=== PATIENT | female | born 1960 | race Caucasian/White ===

== ENCOUNTER 2016-08-16 12:55 | Inpatient (IN) | payer BC ==
[~2016-08-16] VITALS: Ht 170.2 cm; Wt 89.4 kg
[~2016-08-16 12:55] MED LIST: ASCO10003 PO; ASPI81TA28 PO; CHOL1000 PO; CLTP PO; DYZ PO; LORA-741 PO; OMEP40CA PO; VITA400C15 PO
[2016-08-16] MEDS ORDERED: SODIUM CHLORIDE 0.9% 1000ML 1,000 ML IV STA ×3 (14:07→15:18)
[2016-08-16] MEDS ORDERED: ACETAMINOPHEN 500 MG TAB PO STA (14:12)
[2016-08-16 14:43] LABS: HEMATOCRIT 40.7 % (37-47); MEAN CELL VOLUME 95.1 fL (80-100); MEAN CORPUSCULAR HEMOGLOBIN 32.7 pg (25-34); MEAN CORPUSCULAR HGB CONC 34.4 g/dl (32-36); MEAN PLATELET VOLUME 10.5 fL (7.4-10.4); PLATELET COUNT 265 K/uL (130-400); RED BLOOD COUNT 4.28 M/uL (4.2-5.4); WHITE BLOOD COUNT 24.48 K/uL (4.8-10.8)
[2016-08-16 14:54] LABS: INR 1.1 (0.9-1.1); PARTIAL THROMBOPLASTIN RATIO 1.1; PROTHROMBIN TIME (PATIENT) 11.9 SECONDS (9.0-12.0)
--- NOTE | 2016-08-16 14:54 | DIAGNOSTIC IMAGING REPORT ---
CHEST ONE VIEW PORTABLE CLINICAL HISTORY: Weakness COMPARISON STUDY: 11/05/2015 FINDINGS: The heart is the upper limits of normal in size. There is mild interstitial thickening similar to the prior study. There is no overt failure. There is no lobar consolidation. There is no significant pleural fluid.[ IMPRESSION: Mild chronic interstitial thickening. No acute findings. Electronically signed by: Donald Salcido M.D. 08/16/2016 2:52 PM
[2016-08-16 15:13] LABS: ALT/SGPT 28 U/L (12-78); BLOOD UREA NITROGEN 15 mg/dl (7-18); BUN/CREATININE RATIO 16.3 (10-20); CALCIUM 8.2 mg/dl (8.5-10.1); CARBON DIOXIDE 23 mmol/L (21-32); CHLORIDE 100 mmol/L (98-107); CREATININE 0.89 mg/dl (0.60-1.20); GLUCOSE 137 mg/dl (70-99); MAGNESIUM 1.4 mg/dl (1.8-2.4); POTASSIUM 3.1 mmol/L (3.5-5.1); SODIUM 135 mmol/L (136-145)
[2016-08-16 15:22] LABS: ALKALINE PHOSPHATASE 73 U/L (45-117); AST/SGOT 27 U/L (15-37); CKMB/CK RATIO 0.6 (0-3.0)
[2016-08-16 15:33] LABS: BASO % 0.1 %; BASO ABS # 0.02 K/uL (0-0.2); COMPLETE YES; IG% 0.6 %; LYMPH ABS # 1.22 K/uL (1.2-3.4); MONO % 7.6 %; NEUT % 86.7 %; VACUOLIZATION 1+
[2016-08-16 16:08] LABS: URINE APPEARANCE CLOUDY (CLEAR); URINE COLOR DK YELLOW; URINE EPITHELIAL CELL AUTO >30 /lpf (0-5); URINE NITRITE NEG (NEG); URINE SPECIFIC GRAVITY 1.028 (1.000-1.030); UROBILINOGEN NEG (NEG)
[2016-08-16 16:09] LABS: MANUAL MICROSCOPIC REQUIRED? NO; REVIEW REQ? NO
[2016-08-16 16:10] LABS: URINE BILIRUBIN NEG (NEG)
[2016-08-16] MEDS ORDERED: METRONIDAZOLE 500MG / 100ML NSS IV STA (17:29)
[2016-08-16] MEDS ORDERED: POTASSIUM CHLORIDE 10 MEQ / 100ML WTR IV STA (17:30)
[2016-08-16] MEDS ORDERED: MAGNESIUM SULFATE 1GM / D5W 1 GM BAG IV STA (17:30)
--- NOTE | 2016-08-16 18:08 | History and Physical ---
History & Physical Date & Time of Service: Aug 16, 2016 at 18:08 . Chief Complaint: diarrhea, fever . Primary Care Physician: Hayder Hough M.D. . History of Present Illness Source: patient, clinic records, hospital records 56 YO female followed by Dr. Hough. History of hypertension and GERD. Prescribed amoxicillin / clavulanic acid for tooth abscess 1 week ago. Developed fever, malaise, diarrhea last night. No associated abdominal pain. Experienced some nausea, but no emesis. Passed about 8 loose stools during the night. No melena or hematochezia. She did not try any over the counter medications for her symptoms. . Past Medical/Surgical History Medical Problems: (1) GERD (gastroesophageal reflux disease) Status: Chronic (2) Hypertension Status: Chronic . Family History FATHER Diabetes mellitus Hypertension Glaucoma MOTHER Hypertension BROTHER Coronary artery disease BROTHER Coronary artery disease SISTER Stroke Social History Smoking Status: Never Smoker Alcohol Use: none Marital Status: single Housing status: lives with family Occupational Status: employed Immunizations History of Influenza Vaccine: Yes History of Tetanus Vaccine?: UTD History of Pneumococcal: No History of Hepatitis B Vaccine: Unknown Multi-Drug Resistant Organisms History of MDRO: No Allergies Coded Allergies: No Known Allergies (Unverified , 08/16/16) Home Medications Scheduled Ascorbic Acid (Vitamin C), 1,000 MG PO DAILY Aspirin (Aspirin Ec), 81 MG PO DAILY Calcium/Vitamin D (Caltrate 600 Plus *), 1 TAB PO DAILY Cholecalciferol (Vitamin D3), 1 TAB PO DAILY Hctz/Lisinopril (Lisinopril/Hctz 10/12.5 Mg), 1 TAB PO DAILY Omeprazole (Prilosec), 40 MG PO Q2D Tocopheryl Acet,Dl-Alpha (Vitamin E), 400 INTER.UNIT PO DAILY Venlafaxine Hcl (Venlafaxine Hcl Er), 150 MG PO DAILY Scheduled PRN Lorazepam (Ativan), 0.5 MG PO TID PRN for Anxiety/Agitation Review of Systems Constitutional: + chills, + fever, No weight loss Eyes: No diplopia, No worsening of vision ENT: + dental problems (dental abscess last week, symptoms resolved), No nasal symptoms, No sore throat Respiratory: No cough, No shortness of breath, No wheezing Cardiovascular: No chest pain, No edema Abdomen: + diarrhea, + nausea, No GI bleeding, No pain, No vomiting Musculoskeletal: No joint pain, No muscle pain Genitourinary - Female: No dysuria, No hematuria Neurologic: + problem reported (headache today) Endocrine: No excessive thirst, No excessive urination, No fatigue Hematologic / Lymphatic: No abnormal bleeding/bruising, No swollen lymph nodes Integumentary: No new/changing skin lesions, No rash Physical Exam Vital Signs Date Time Temp Pulse Resp B/P Pulse Ox O2 Delivery O2 Flow Rate FiO2 08/16/16 18:07 102 22 95/65 91 Room Air 08/16/16 16:30 37.9 100 22 109/69 92 Room Air 08/16/16 16:04 98 24 109/69 94 Room Air 08/16/16 15:47 100 24 104/66 93 Room Air 08/16/16 15:09 38.1 105 26 94/60 94 Room Air 08/16/16 14:27 115 08/16/16 14:11 93 Room Air 08/16/16 13:21 39.3 133 18 97/68 93 Room Air General Appearance: WD/WN, + moderate distress Head: normocephalic, atraumatic Eyes: normal inspection, PERRL, EOMI, sclerae normal, + pertinent finding ( conjunctivae normal) ENT: normal ENT inspection, hearing grossly normal, pharynx normal Neck: supple, no adenopathy, thyroid normal, no JVD, trachea midline Respiratory/Chest: lungs clear, no respiratory distress, no accessory muscle use Cardiovascular: regular rate, rhythm, no edema, no gallop, no JVD, no murmur Abdomen/GI: non tender, soft, no organomegaly, no pulsatile mass, + pertinent finding (quiet bowel sounds) Extremities/Musculoskelatal: normal inspection, no calf tenderness, no pedal edema Neurologic/Psych: chemical dependency nurse II-XII nml as tested (PERRL, EOMI, no facial palsy), no motor/sensory deficits (motor grossly intact), alert, normal mood/affect, oriented x 3 Skin: normal color, warm/dry, no rash Diagnostics Laboratory Results Results Past 24 Hours Test 08/16/16 14:00 08/16/16 14:20 08/16/16 14:27 08/16/16 15:40 Range/Units Influenza Type A Antigen Neg for Influ A NEG Influenza Type B Antigen Neg for Influ B NEG White Blood Count 24.48 4.8-10.8 K/uL Red Blood Count 4.28 4.2-5.4 M/uL Hemoglobin 14.0 12.0-16.0 g/dL Hematocrit 40.7 37-47 % Mean Corpuscular Volume 95.1 80-100 fL Mean Corpuscular Hemoglobin 32.7 25-34 pg Mean Corpuscular Hemoglobin Concent 34.4 32-36 g/dl Platelet Count 265 130-400 K/uL Mean Platelet Volume 10.5 7.4-10.4 fL Neutrophils (%) (Auto) 86.7 % Lymphocytes (%) (Auto) 5.0 % Monocytes (%) (Auto) 7.6 % Eosinophils (%) (Auto) 0.0 % Basophils (%) (Auto) 0.1 % Neutrophils # (Auto) 21.24 1.4-6.5 K/uL Lymphocytes # (Auto) 1.22 1.2-3.4 K/uL Monocytes # (Auto) 1.86 0.11-0.59 K/uL Eosinophils # (Auto) 0.00 0-0.5 K/uL Basophils # (Auto) 0.02 0-0.2 K/uL RDW Standard Deviation 46.4 36.4-46.3 fL RDW Coefficient of Variation 13.4 11.5-14.5 % Immature Granulocyte % (Auto) 0.6 % Immature Granulocyte # (Auto) 0.14 0.00-0.02 K/uL Toxic Vacuolation 1+ Prothrombin Time 11.9 9.0-12.0 SECONDS Prothromb Time International Ratio 1.1 0.9-1.1 Activated Partial Thromboplast Time 29.2 21.0-31.0 SECONDS Partial Thromboplastin Ratio 1.1 Sodium Level 135 136-145 mmol/L Potassium Level 3.1 3.5-5.1 mmol/L Chloride Level 100 98-107 mmol/L Carbon Dioxide Level 23 21-32 mmol/L Anion Gap 12.0 3-11 mmol/L Blood Urea Nitrogen 15 7-18 mg/dl Creatinine 0.89 0.60-1.20 mg/dl Est Creatinine Clear Calc Drug Dose 79.1 ml/min Estimated GFR () 82.8 Estimated GFR (Non- 71.4 BUN/Creatinine Ratio 16.3 10-20 Random Glucose 137 70-99 mg/dl Calcium Level 8.2 8.5-10.1 mg/dl Magnesium Level 1.4 1.8-2.4 mg/dl Total Bilirubin 0.6 0.2-1 mg/dl Direct Bilirubin 0.1 0-0.2 mg/dl Aspartate Amino Transf (AST/SGOT) 27 15-37 U/L Alanine Aminotransferase (ALT/SGPT) 28 12-78 U/L Alkaline Phosphatase 73 45-117 U/L Total Creatine Kinase 170 26-192 U/L Creatine Kinase MB 1.1 0.5-3.6 ng/ml Creatine Kinase MB Ratio 0.6 0-3.0 Troponin I < 0.015 0-0.045 ng/ml Total Protein 7.1 6.4-8.2 gm/dl Albumin 3.2 3.4-5.0 gm/dl Lipase 60 73-393 U/L Thyroid Stimulating Hormone (TSH) 0.330 0.300-4.500 uIu/ml Bedside Lactic Acid Venous 1.07 0.90-1.70 mmol/L Urine Color DK YELLOW Urine Appearance CLOUDY CLEAR Urine pH 5.0 4.5-7.5 Urine Specific [place] 1.028 1.000-1.030 Urine Protein 2+ NEG Urine Glucose (UA) NEG NEG Urine Ketones TRACE NEG Urine Occult Blood 3+ NEG Urine Nitrite NEG NEG Urine Bilirubin NEG NEG Urine Urobilinogen NEG NEG Urine Leukocyte Esterase SMALL NEG Urine WBC (Auto) 10-30 0-5 /hpf Urine RBC (Auto) >30 0-4 /hpf Urine Hyaline Casts (Auto) 10-30 0-5 /lpf Urine Epithelial Cells (Auto) >30 0-5 /lpf Urine Bacteria (Auto) NEG NEG Microbiology Results 08/16/16 Blood Culture, Received Pending 08/16/16 Blood Culture, Received Pending 08/16/16 C.difficile Toxin B Gene (PCR) - Final, Complete Positive for C. difficile toxin B gene 08/16/16 Shiga Toxin Test, Received Pending 08/16/16 Stool Culture, Received Pending 08/16/16 Urine Culture, Received Pending Diagnostic Radiology CHEST ONE VIEW PORTABLE CLINICAL HISTORY: Weakness COMPARISON STUDY: 11/05/2015 FINDINGS: The heart is the upper limits of normal in size. There is mild interstitial thickening similar to the prior study. There is no overt failure. There is no lobar consolidation. There is no significant pleural fluid.[ IMPRESSION: Mild chronic interstitial thickening. No acute findings. Electronically signed by: Donald Salcido M.D. 08/16/2016 2:52 PM . EKG EKG performed at 14:[address] at 120 / minute, [id number]'s. . Impression Assessment and Plan SEPSIS Meets criteria for sepsis per 2001 definition and current CMS guidelines- fever , tachycardia, leukocytosis. Systolic BP > 90. Lactate < 2. Blood cultures obtained. Stool + for C diff. Broad spectrum antibiotics not indicated in light of C diff. C DIFF COLITIS Rx with PO vancomycin and IV metronidazole. TOOTH ABSCESS Has received 7 days of amoxicillin / clavulanic acid + drainage by her dentist. Symptoms resolved. DC amoxicillin / clavulanic acid in light of C diff. HYPERTENSION BP's relatively low in ED due to C diff colitis / volume depletion. Hold lisinopril / HCTZ. Follow. HYPOKALEMIA K = 3.1. Secondary to diarrhea +/- HCTZ. IV repletion. Follow. HYPOMAGNESEMIA Mg = 1.4. Secondary to diarrhea +/- HCTZ. IV repletion. Follow. GERD Continue PPI. VTE PROPHYLAXIS No anticoagulants in light of colitis. SCD's. Ambulate as able. DISPOSITION Expected discharge to home. Family Medicine follow-up with Dr. Hough. . VTE Prophylaxis Risk Level: Moderate Given or contraindicated: SCD's
[2016-08-16] MEDS ORDERED: VENL150T33 PO (18:13)
[2016-08-16] MEDS ORDERED: LSN/10125 PO (18:13)
[2016-08-16] MEDS ORDERED: ONDANSETRON INJ 2 MG/ML 2 ML VIAL IV PRN (18:15)
[2016-08-16 19:28] VITALS: BP 102/69; PULSE 107; O2SAT 95
[2016-08-16 19:44] VITALS: BP 102/69; PULSE 101; TEMP 38.6; O2SAT 97; Ht 170.2 cm; Wt 89.4 kg
[2016-08-16] MEDS ORDERED: LORAZEPAM 0.5 MG TAB PO PRN (20:15)
[2016-08-16] MEDS ORDERED: VANCOMYCIN HCL 250 MG/5 ML SOLN PO ONE (21:28)
[2016-08-16] MEDS: ACETAMINOPHEN 500 MG TAB PO PRN (21:28)
[2016-08-16] MEDS ORDERED: RASPBERRY SYRUP 5 ML UDP PO STA (21:31)
[2016-08-16] MEDS: POTASSIUM CHLORIDE IV SCH (22:16)
[2016-08-16] MEDS: D5W AND NSS IV SCH (22:16)
[2016-08-16] MEDS: MAG SULFATE IV SCH (22:16)
[2016-08-17 00:23] VITALS: BP 97/60; PULSE 93; TEMP 37.4; O2SAT 94
--- NOTE | 2016-08-17 01:22 | EMERGENCY ROOM VISIT NOTE ---
History Report prepared by Louise: Olga Krueger Under the Supervision of: Dr. Tien Cox M.D. First contact with patient: 14:03 Chief Complaint: FLU LIKE SX Stated Complaint: FLU SYMPTOMS History of Present Illness The patient is a 56 year old female who presents to the Emergency Room with complaints of persistent flu like symptoms that started last night. She complains of a fever, diarrhea, chills, achiness and feeling lethargic. She reports she experienced between 6 and 8 episodes of diarrhea last night. She denies any blood in her stool. She has not taken any medication for her symptoms yet. She has also experienced a "mild headache" and states her abdomen feels "a little tender". The patient notes she was recently on Amoxicillin about 2 weeks ago for a dental infection. She admits to some recent sick contacts at work. She has a history of hypertension but has not taken her daily BP medication yet today. The patient denies LOC, diaphoresis, visual changes, neck pain, chest pain, breathing difficulties, nausea, vomiting, back pain, melena, hematochezia, urinary symptoms, numbness, lymphadenopathy, rash, or other complaints. Source of History: patient Onset: last night Position: other (global) Timing: other (persistent) Associated Symptoms: + abdominal pain, + chills, + diarrhea, + fevers, + headache, + weakness Review of Systems See HPI for pertinent positives and negatives. A total of ten systems were reviewed and were otherwise negative. Past Medical & Surgical Medical Problems: (1) GERD (gastroesophageal reflux disease) (2) Hypertension Family History FHx: heart disease Social History Smoking Status: Never Smoker Alcohol Use: none Drug Use: none Marital Status: single Housing Status: lives alone Occupation Status: employed Current/Historical Medications Scheduled Ascorbic Acid (Vitamin C), 1,000 MG PO DAILY Aspirin (Aspirin Ec), 81 MG PO DAILY Calcium/Vitamin D (Caltrate 600 Plus *), 1 TAB PO DAILY Cholecalciferol (Vitamin D3), 1 TAB PO DAILY Hctz/Lisinopril (Lisinopril/Hctz 10/12.5 Mg), 1 TAB PO DAILY Omeprazole (Prilosec), 40 MG PO Q2D Tocopheryl Acet,Dl-Alpha (Vitamin E), 400 INTER.UNIT PO DAILY Venlafaxine Hcl (Venlafaxine Hcl Er), 150 MG PO DAILY Scheduled PRN Lorazepam (Ativan), 0.5 MG PO TID PRN for Anxiety/Agitation Allergies Coded Allergies: No Known Allergies (Unverified , 08/16/16) Physical Exam Vital Signs Date Time Temp Pulse Resp B/P Pulse Ox O2 Delivery O2 Flow Rate FiO2 08/16/16 18:07 102 22 95/65 91 Room Air 08/16/16 16:30 37.9 100 22 109/69 92 Room Air 08/16/16 16:04 98 24 109/69 94 Room Air 08/16/16 15:47 100 24 104/66 93 Room Air 08/16/16 15:09 38.1 105 26 94/60 94 Room Air 08/16/16 14:27 115 08/16/16 14:11 93 Room Air 08/16/16 13:21 39.3 133 18 97/68 93 Room Air Physical Exam GENERAL: Awake, alert, mildly ill appearing, no distress HEAD: Normocephalic, atraumatic. No edema. EYES: Normal conjunctiva. Sclera non-icteric. EARS: Right TM normal. Left TM normal. NOSE: Mild congestion. OROPHARYNX: Lips, tongue, and mucosa unremarkable. No erythema or exudate. NECK: Supple. No nuchal rigidity. FROM. No adenopathy. Negative jolt accentuation test. RESPIRATORY: CTA bilaterally. No wheezes rales or rhonchi. CARDIAC: Tachycardic rate, normal rhythm. ABDOMEN: Soft, non distended. Very minimal lower abdominal tenderness to palpation. NEURO: Normal sensorium. SKIN: No rash or jaundice noted Medical Decision & Procedures ER Provider Diagnostic Interpretation: This X-Ray was reviewed and interpreted by myself and the radiologist. CHEST ONE VIEW PORTABLE CLINICAL HISTORY: Weakness COMPARISON STUDY: 11/05/2015 FINDINGS: The heart is the upper limits of normal in size. There is mild interstitial thickening similar to the prior study. There is no overt failure. There is no lobar consolidation. There is no significant pleural fluid. IMPRESSION: Mild chronic interstitial thickening. No acute findings. Electronically signed by: Donald Salcido M.D. 08/16/2016 2:52 PM Laboratory Results 08/16/16 14:20 Red Blood Count 4.28, Mean Corpuscular Volume 95.1, Mean Corpuscular Hemoglobin 32.7, Mean Corpuscular Hemoglobin Concent 34.4, Mean Platelet Volume 10.5, Neutrophils (%) (Auto) 86.7, Lymphocytes (%) (Auto) 5.0, Monocytes (%) (Auto) 7.6, Eosinophils (%) (Auto) 0.0, Basophils (%) (Auto) 0.1, Neutrophils # (Auto) 21.24, Lymphocytes # (Auto) 1.22, Monocytes # (Auto) 1.86, Eosinophils # (Auto) 0.00, Basophils # (Auto) 0.02 08/16/16 14:20 Test 08/16/16 14:00 08/16/16 14:20 08/16/16 14:27 08/16/16 15:40 Influenza Type A Antigen Neg for Influ A (NEG) Influenza Type B Antigen Neg for Influ B (NEG) White Blood Count 24.48 K/uL (4.8-10.8) Red Blood Count 4.28 M/uL (4.2-5.4) Hemoglobin 14.0 g/dL (12.0-16.0) Hematocrit 40.7 % (37-47) Mean Corpuscular Volume 95.1 fL (80-100) Mean Corpuscular Hemoglobin 32.7 pg (25-34) Mean Corpuscular Hemoglobin Concent 34.4 g/dl (32-36) Platelet Count 265 K/uL (130-400) Mean Platelet Volume 10.5 fL (7.4-10.4) Neutrophils (%) (Auto) 86.7 % Lymphocytes (%) (Auto) 5.0 % Monocytes (%) (Auto) 7.6 % Eosinophils (%) (Auto) 0.0 % Basophils (%) (Auto) 0.1 % Neutrophils # (Auto) 21.24 K/uL (1.4-6.5) Lymphocytes # (Auto) 1.22 K/uL (1.2-3.4) Monocytes # (Auto) 1.86 K/uL (0.11-0.59) Eosinophils # (Auto) 0.00 K/uL (0-0.5) Basophils # (Auto) 0.02 K/uL (0-0.2) RDW Standard Deviation 46.4 fL (36.4-46.3) RDW Coefficient of Variation 13.4 % (11.5-14.5) Immature Granulocyte % (Auto) 0.6 % Immature Granulocyte # (Auto) 0.14 K/uL (0.00-0.02) Toxic Vacuolation 1+ Prothrombin Time 11.9 SECONDS (9.0-12.0) Prothromb Time International Ratio 1.1 (0.9-1.1) Activated Partial Thromboplast Time 29.2 SECONDS (21.0-31.0) Partial Thromboplastin Ratio 1.1 Anion Gap 12.0 mmol/L (3-11) Est Creatinine Clear Calc Drug Dose 79.1 ml/min Estimated GFR () 82.8 Estimated GFR (Non- 71.4 BUN/Creatinine Ratio 16.3 (10-20) Calcium Level 8.2 mg/dl (8.5-10.1) Magnesium Level 1.4 mg/dl (1.8-2.4) Total Bilirubin 0.6 mg/dl (0.2-1) Direct Bilirubin 0.1 mg/dl (0-0.2) Aspartate Amino Transf (AST/SGOT) 27 U/L (15-37) Alanine Aminotransferase (ALT/SGPT) 28 U/L (12-78) Alkaline Phosphatase 73 U/L (45-117) Total Creatine Kinase 170 U/L (26-192) Creatine Kinase MB 1.1 ng/ml (0.5-3.6) Creatine Kinase MB Ratio 0.6 (0-3.0) Troponin I < 0.015 ng/ml (0-0.045) Total Protein 7.1 gm/dl (6.4-8.2) Albumin 3.2 gm/dl (3.4-5.0) Lipase 60 U/L (73-393) Thyroid Stimulating Hormone (TSH) 0.330 uIu/ml (0.300-4.500) Bedside Lactic Acid Venous 1.07 mmol/L (0.90-1.70) Urine Color DK YELLOW Urine Appearance CLOUDY (CLEAR) Urine pH 5.0 (4.5-7.5) Urine Specific [place] 1.028 (1.000-1.030) Urine Protein 2+ (NEG) Urine Glucose (UA) NEG (NEG) Urine Ketones TRACE (NEG) Urine Occult Blood 3+ (NEG) Urine Nitrite NEG (NEG) Urine Bilirubin NEG (NEG) Urine Urobilinogen NEG (NEG) Urine Leukocyte Esterase SMALL (NEG) Urine WBC (Auto) 10-30 /hpf (0-5) Urine RBC (Auto) >30 /hpf (0-4) Urine Hyaline Casts (Auto) 10-30 /lpf (0-5) Urine Epithelial Cells (Auto) >30 /lpf (0-5) Urine Bacteria (Auto) NEG (NEG) Date/Time Source Procedure Growth Status 08/16/16 15:40 Stool C.difficile Toxin B Gene (PCR) - Final Positive for C. difficile toxin B gene Complete Laboratory results reviewed by me Medications Administered Medications (Trade) Dose Ordered Sig/Marc Route Start Time Stop Time Status Last Admin Dose Admin Sodium Chloride 1,000 ml @ 125 mls/hr Q8H STAT IV 08/16/16 14:07 08/16/16 20:12 DC 08/16/16 14:41 125 MLS/HR Sodium Chloride (Nss 1000ml) 1,000 ml @ 999 mls/hr Q1H1M STAT IV 08/16/16 14:07 08/16/16 15:07 DC 08/16/16 14:26 999 MLS/HR Acetaminophen 1000 mg 1,000 mg NOW STAT PO 08/16/16 14:12 08/16/16 14:13 DC 08/16/16 14:26 1,000 MG Sodium Chloride (Nss 1000ml) 1,000 ml @ 999 mls/hr Q1H1M STAT IV 08/16/16 15:18 08/16/16 16:18 DC 08/16/16 15:18 999 MLS/HR Metronidazole (Flagyl / Nss) 500 mg NOW STAT IV 08/16/16 17:29 08/16/16 17:30 DC 08/16/16 17:47 500 MG Magnesium Sulfate (Magnesium Sulfate) 2 gm NOW STAT IV 08/16/16 17:30 08/16/16 17:31 DC 08/16/16 18:58 1 GM Potassium Chloride (Kcl 10 Meq / Wtr) 10 meq NOW STAT IV 08/16/16 17:30 08/16/16 17:31 DC 08/16/16 17:47 10 MEQ ECG Indication: other (fever/flu like symptoms) Rate (beats per minute): 116 Rhythm: sinus tachycardia Findings: nonspecific-ST abn (Lateral), prolonged QT Comparison ECG Date: Compared to EKG from October 2015, non-specific ST changes are now present laterally ED Course 1409: The patient was evaluated in room B12A. A complete history and physical exam was performed. 1407: NSS 1000 ml @ 999 mls/hr IV, NSS 1000 ml @ 125 mls/hr IV. 1412: Tylenol 1000 mg PO. 1518: NSS 1000 ml @ 999 mls/hr IV. 1521: I reevaluated the patient. She is feeling a little bit better. 1715: Nursing informed me the patient is positive for Clostridium Difficile. 1729: Flagyl 500 mg IV. 1730: Potassium Chloride 10 meq IV, Magnesium Sulfate 2 gm IV. 1806: I [facility] the [facility] The patient will be further evaluated. Medical Decision Triage Nursing notes reviewed. The patient's presentation and history were concerning for flu like symptoms and diarrhea. Etiologies such as viral syndrome, influenza, colitis, C. difficile infection, infectious diarrhea, pneumonia, urinary tract infection, sepsis, bacteremia, meningitis, as well as others were entertained. The patient was evaluated. She was mildly ill appearing. She was febrile and tachycardic. She was given Tylenol, normal saline 1 L bolus, and maintenance fluids were initiated. Stool studies ordered. Influenza swab sent. The patient had an unremarkable chest x-ray. Additional fluids were given. Her vital signs stabilized. Her fever resolved. She was feeling better on reassessment. Influenza was negative. The patient had a marked leukocytosis at 24,000. She had slight hypokalemia and hypomagnesemia. These were repleted. The patient had a normal lactate. Given her history of antibiotic use I was very concerned about C. difficile infection. A specimen was obtained and this was positive for C. difficile. Her fever, tachycardia and relative hypotension was concerning for mild sepsis. The patient was given IV Flagyl. She was doing much better than on presentation but because of her severe illness will need further evaluation and management in the hospital. Consultation was placed with the [facility]. I discussed the case with Dr. Tien Ramsay who evaluated the patient in the Emergency Room. The chart was completed utilizing [employer] voice recognition software. Grammatical errors, random word insertions, pronoun errors, and incomplete sentences are an occasional consequence of this system due to software limitations, ambient noise, and hardware issues. Any formal questions or concerns about the content, text, or information contained within the body of this dictation should be directly addressed to the physician for clarification. Consults Time Called: 1734 Consulting Physician: Hailey Swain Hospitalist Returned Call: [phone] I discussed the patients case with Hailey Swain. The patient will be further evaluated. Impression Primary Impression: C. difficile diarrhea Additional Impression: Hypotension Critical Care I have personally spent greater than 30 minutes of critical care time in the direct management of this patient. This includes bedside care, interpretation of diagnostic studies, and testing, discussion with consultants, patient, and family members, and other required patient management activities. This 30 minutes is in excess of all separately billable procedures. Scribe Attestation The scribe's documentation has been prepared under my direction and personally reviewed by me in its entirety. I confirm that the note above accurately reflects all work, treatment, procedures, and medical decision making performed by me. Departure Information Dispostion Being Evaluated By Hospitalist Referrals Hayder Hough M.D. (PCP) Patient Instructions A Signature Page, My [facility]
[2016-08-17] MEDS: METRONIDAZOLE / NSS 500 MG in PREMIXED NSS 100 ML IV SCH ×3 (02:16→18:18)
[2016-08-17] MEDS: D5W AND NSS IV SCH ×2 (04:54→11:22)
[2016-08-17] MEDS: MAG SULFATE IV SCH ×2 (04:54→11:22)
[2016-08-17] MEDS: POTASSIUM CHLORIDE IV SCH ×2 (04:54→11:22)
[2016-08-17 07:31] VITALS: BP 91/60; PULSE 94; TEMP 37.1; O2SAT 94
[2016-08-17 08:28] LABS: HEMATOCRIT 35.8 % (37-47); MEAN CELL VOLUME 96.5 fL (80-100); MEAN CORPUSCULAR HEMOGLOBIN 31.8 pg (25-34); MEAN PLATELET VOLUME 10.8 fL (7.4-10.4); PLATELET COUNT 215 K/uL (130-400); RED BLOOD COUNT 3.71 M/uL (4.2-5.4); WHITE BLOOD COUNT 15.89 K/uL (4.8-10.8)
[2016-08-17] MEDS: VANCOMYCIN HCL 250 MG/5 ML SOLN PO SCH ×4 (08:48→20:47)
[2016-08-17] MEDS: VENLAFAXINE HCL XR 150 MG CAPXR PO SCH (08:48)
[2016-08-17] MEDS: PANTOprazole SOD 40 MG TAB PO SCH (08:48)
[2016-08-17] MEDS: RASPBERRY SYRUP 5 ML UDP PO SCH ×4 (08:48→20:47)
[2016-08-17 08:57] LABS: BUN/CREATININE RATIO 9.4 (10-20); CREATININE 0.79 mg/dl (0.60-1.20); MAGNESIUM 2.4 mg/dl (1.8-2.4); POTASSIUM 3.5 mmol/L (3.5-5.1)
[2016-08-17] MEDS ORDERED: SODIUM CHLORIDE 0.9% 500ML 500 ML IV SCH (09:15)
[2016-08-17 15:23] VITALS: BP 110/73; PULSE 94; TEMP 37.5; O2SAT 94
[2016-08-17 16:00] VITALS: O2SAT 94
[2016-08-17] MEDS: ACETAMINOPHEN 500 MG TAB PO PRN (18:24)
--- NOTE | 2016-08-17 23:12 | Progress Note ---
Medicine Progress Note Date & Time of Visit: Aug 17, 2016 at ~ 19:00 . Subjective Temp down. 1 episode of N/V. Diarrhea improving. Diffuse, crampy abdominal pain. Notes fluid retention in face and hands. No CP, cough, SOB. . Objective Last 8 Hrs Date Time Temp Pulse Resp B/P Pulse Ox O2 Delivery O2 Flow Rate FiO2 08/17/16 20:00 Room Air 08/17/16 16:00 94 Room Air 08/17/16 15:23 37.5 94 20 110/73 94 Room Air Physical Exam: General- no acute distress; appears to be more comfortable Lungs- clear Heart- RRR Abdomen- quiet bowel sounds, slightly distended, soft, diffuse mild tenderness without rebound or guarding Extremities- no pretibial edema or calf tendernes Neuro- alert . Laboratory Results: Last 24 Hours Test 08/17/16 07:37 White Blood Count 15.89 K/uL Red Blood Count 3.71 M/uL Hemoglobin 11.8 g/dL Hematocrit 35.8 % Mean Corpuscular Volume 96.5 fL Mean Corpuscular Hemoglobin 31.8 pg Mean Corpuscular Hemoglobin Concent 33.0 g/dl RDW Standard Deviation 48.1 fL RDW Coefficient of Variation 13.6 % Platelet Count 215 K/uL Mean Platelet Volume 10.8 fL Sodium Level 142 mmol/L Potassium Level 3.5 mmol/L Chloride Level 110 mmol/L Carbon Dioxide Level 24 mmol/L Anion Gap 8.0 mmol/L Blood Urea Nitrogen 7 mg/dl Creatinine 0.79 mg/dl Est Creatinine Clear Calc Drug Dose 89.1 ml/min Estimated GFR () 95.6 Estimated GFR (Non- 82.5 BUN/Creatinine Ratio 9.4 Random Glucose 132 mg/dl Calcium Level 7.0 mg/dl Magnesium Level 2.4 mg/dl Assessment & Plan SEPSIS Met criteria for sepsis per 2001 definition and current CMS guidelines- fever, tachycardia, leukocytosis. Systolic BP > 90. Lactate < 2. Blood cultures obtained. Stool + for C diff. Broad spectrum antibiotics not indicated in light of C diff. C DIFF COLITIS Improving clinically. WBC 24,480 --> 15,890. Continue Rx with PO vancomycin and IV metronidazole. TOOTH ABSCESS Has received 7 days of amoxicillin / clavulanic acid + drainage by her dentist. Symptoms resolved. DC amoxicillin / clavulanic acid in light of C diff. HYPERTENSION BP's relatively low in ED due to C diff colitis / volume depletion. Holding lisinopril / HCTZ. Follow. HYPOKALEMIA K = 3.1 in ED. Hypokalemia secondary to diarrhea +/- HCTZ. Receiving IV repletion. K today = 3.5 Follow. HYPOMAGNESEMIA Mg = 1.4 in ED. Secondary to diarrhea +/- HCTZ. Receiving IV repletion. Mg today = 2.4 Follow. GERD Continue PPI. VTE PROPHYLAXIS No anticoagulants in light of colitis. SCD's. Ambulate as able. DISPOSITION Expected discharge to home. Family Medicine follow-up with Dr. Hough. Components of this document were electronically copied and updated from the last documentation created by the undersigned in order to maintain a complete, accurate, and current record. Any portion of this document created by another author, if any, will be attributed to them. I certify that the record accurately reflects the patient's current status and services provided on the date of service. . Current Inpatient Medications: Current Inpatient Medications Medications (Trade) Dose Ordered Sig/Marc Route Start Time Stop Time Status Last Admin Dose Admin Ondansetron HCl (Zofran Inj) 4 mg Q6H PRN IV 08/16/16 18:15 09/15/16 18:14 08/17/16 13:47 4 MG Lorazepam (Ativan Tab) 0.5 mg TID PRN PO 08/16/16 20:15 09/15/16 20:14 Venlafaxine HCl (effeXOR EXTENDED REL CAP) 150 mg DAILY PO 08/17/16 09:00 09/16/16 08:59 08/17/16 08:48 150 MG Pantoprazole Sodium (Protonix Tab) 40 mg QAM PO 08/17/16 09:00 09/16/16 08:59 08/17/16 08:48 40 MG Acetaminophen (Tylenol Tab) 1,000 mg Q8H PRN PO 08/16/16 20:15 09/15/16 20:14 08/17/16 18:24 1,000 MG Vancomycin HCl 250 mg 250 mg QID PO 08/17/16 09:00 08/27/16 08:59 08/17/16 20:47 250 MG Metronidazole/Prmx (Flagyl / Nss/ Premixed Nss) 100 ml @ 100 mls/hr Q8@0200,1000,1800 IV 08/17/16 02:00 08/27/16 01:59 08/17/16 18:18 100 MLS/HR Raspberry (Raspberry Syrup 5ML Cup) 5 ml QID PO 08/17/16 09:00 08/27/16 08:59 08/17/16 20:47 5 ML
[2016-08-17 23:32] VITALS: BP 98/66; PULSE 77; TEMP 36.9; O2SAT 95
[2016-08-18] MEDS: METRONIDAZOLE / NSS 500 MG in PREMIXED NSS 100 ML IV SCH ×3 (02:13→18:49)
[2016-08-18] MEDS: ACETAMINOPHEN 500 MG TAB PO PRN (06:48)
[2016-08-18 07:56] VITALS: BP 104/67; PULSE 72; TEMP 37; O2SAT 95
[2016-08-18 08:23] LABS: HEMATOCRIT 37.5 % (37-47); MEAN CELL VOLUME 97.2 fL (80-100); MEAN CORPUSCULAR HEMOGLOBIN 32.1 pg (25-34); MEAN CORPUSCULAR HGB CONC 33.1 g/dl (32-36); MEAN PLATELET VOLUME 10.5 fL (7.4-10.4); PLATELET COUNT 193 K/uL (130-400); RED BLOOD COUNT 3.86 M/uL (4.2-5.4)
[2016-08-18] MEDS: VANCOMYCIN HCL 250 MG/5 ML SOLN PO SCH ×4 (08:28→20:34)
[2016-08-18] MEDS: VENLAFAXINE HCL XR 150 MG CAPXR PO SCH (08:28)
[2016-08-18] MEDS: PANTOprazole SOD 40 MG TAB PO SCH (08:29)
[2016-08-18] MEDS: RASPBERRY SYRUP 5 ML UDP PO SCH ×4 (08:29→20:34)
[2016-08-18 08:47] LABS: CALCIUM 7.8 mg/dl (8.5-10.1); CREATININE 0.64 mg/dl (0.60-1.20); MAGNESIUM 2.2 mg/dl (1.8-2.4); POTASSIUM 3.3 mmol/L (3.5-5.1)
[2016-08-18] MEDS ORDERED: POTASSIUM CHLORIDE 20 MEQ TABCR PO ONE (11:03)
[2016-08-18 15:30] VITALS: O2SAT 95
[2016-08-18 15:50] VITALS: BP 113/78; PULSE 70; TEMP 36.8; O2SAT 97
--- NOTE | 2016-08-18 20:53 | Progress Note ---
Medicine Progress Note Date & Time of Visit: Aug 18, 2016 at 17:00 .. Subjective Improving. No fever. No chest pain, cough, shortness of breath. No further nausea or vomiting. Persistent loose stools, but less frequent. . Objective Last 8 Hrs Date Time Temp Pulse Resp B/P Pulse Ox O2 Delivery O2 Flow Rate FiO2 08/18/16 15:50 36.8 70 18 113/78 97 Room Air 08/18/16 15:30 95 Room Air Physical Exam: General- no distress Lungs- clear Heart- RRR Abdomen- + bowel sounds, slightly distended, soft, nontender Extremities- no pretibial edema or calf tenderness Neuro- alert . Laboratory Results: Last 24 Hours Test 08/18/16 08:04 White Blood Count 11.80 K/uL Red Blood Count 3.86 M/uL Hemoglobin 12.4 g/dL Hematocrit 37.5 % Mean Corpuscular Volume 97.2 fL Mean Corpuscular Hemoglobin 32.1 pg Mean Corpuscular Hemoglobin Concent 33.1 g/dl RDW Standard Deviation 48.6 fL RDW Coefficient of Variation 13.7 % Platelet Count 193 K/uL Mean Platelet Volume 10.5 fL Sodium Level 144 mmol/L Potassium Level 3.3 mmol/L Chloride Level 111 mmol/L Carbon Dioxide Level 25 mmol/L Anion Gap 8.0 mmol/L Blood Urea Nitrogen 5 mg/dl Creatinine 0.64 mg/dl Est Creatinine Clear Calc Drug Dose 110.0 ml/min Estimated GFR () 114.0 Estimated GFR (Non- 98.4 BUN/Creatinine Ratio 7.0 Random Glucose 105 mg/dl Calcium Level 7.8 mg/dl Magnesium Level 2.2 mg/dl Assessment & Plan SEPSIS Met criteria for sepsis per 2001 definition and current CMS guidelines- fever, tachycardia, leukocytosis. Systolic BP > 90. Lactate < 2. Blood cultures obtained. Stool + for C diff. Broad spectrum antibiotics not indicated in light of C diff. C DIFF COLITIS Improving clinically. WBC 24,480 --> 11,800. Continue Rx with PO vancomycin and IV metronidazole. TOOTH ABSCESS Has received 7 days of amoxicillin / clavulanic acid + drainage by her dentist. Symptoms resolved. DC amoxicillin / clavulanic acid in light of C diff. HYPERTENSION BP's relatively low in ED due to C diff colitis / volume depletion. Holding lisinopril / HCTZ. Follow. HYPOKALEMIA K = 3.1 in ED. Hypokalemia secondary to diarrhea +/- HCTZ. Receiving IV repletion. K today = 3.3 Follow. HYPOMAGNESEMIA Mg = 1.4 in ED. Secondary to diarrhea +/- HCTZ. Receiving IV repletion. Mg today = 2.2 Follow. GERD Continue PPI. VTE PROPHYLAXIS No anticoagulants in light of colitis. SCD's. Ambulate as able. DISPOSITION Expected discharge to home. Family Medicine follow-up with Dr. Hough. Components of this document were electronically copied and updated from the last documentation created by the undersigned in order to maintain a complete, accurate, and current record. Any portion of this document created by another author, if any, will be attributed to them. I certify that the record accurately reflects the patient's current status and services provided on the date of service. . Current Inpatient Medications: Current Inpatient Medications Medications (Trade) Dose Ordered Sig/Marc Route Start Time Stop Time Status Last Admin Dose Admin Ondansetron HCl (Zofran Inj) 4 mg Q6H PRN IV 08/16/16 18:15 09/15/16 18:14 08/17/16 13:47 4 MG Lorazepam (Ativan Tab) 0.5 mg TID PRN PO 08/16/16 20:15 09/15/16 20:14 Venlafaxine HCl (effeXOR EXTENDED REL CAP) 150 mg DAILY PO 08/17/16 09:00 09/16/16 08:59 08/18/16 08:28 150 MG Pantoprazole Sodium (Protonix Tab) 40 mg QAM PO 08/17/16 09:00 09/16/16 08:59 08/18/16 08:29 40 MG Acetaminophen (Tylenol Tab) 1,000 mg Q8H PRN PO 08/16/16 20:15 09/15/16 20:14 08/18/16 06:48 1,000 MG Vancomycin HCl 250 mg 250 mg QID PO 08/17/16 09:00 08/27/16 08:59 08/18/16 20:34 250 MG Metronidazole/Prmx (Flagyl / Nss/ Premixed Nss) 100 ml @ 100 mls/hr Q8@0200,1000,1800 IV 08/17/16 02:00 08/27/16 01:59 1/1/17 18:49 100 MLS/HR Raspberry (Raspberry Syrup 5ML Cup) 5 ml QID PO 08/17/16 09:00 08/27/16 08:59 08/18/16 20:34 5 ML Potassium Chloride (Klor-Con Tab) 20 meq BID PO 08/18/16 21:00 09/17/16 20:59
[2016-08-18] MEDS: POTASSIUM CHLORIDE 20 MEQ TABCR PO SCH (20:58)
[2016-08-18 23:34] VITALS: BP 107/70; PULSE 89; TEMP 37.3; O2SAT 94
[2016-08-19] MEDS: METRONIDAZOLE / NSS 500 MG in PREMIXED NSS 100 ML IV SCH ×2 (02:07→09:47)
[2016-08-19 06:37] LABS: HEMATOCRIT 36.1 % (37-47); MEAN CELL VOLUME 95.3 fL (80-100); MEAN CORPUSCULAR HEMOGLOBIN 31.7 pg (25-34); MEAN CORPUSCULAR HGB CONC 33.2 g/dl (32-36); MEAN PLATELET VOLUME 10.4 fL (7.4-10.4); PLATELET COUNT 222 K/uL (130-400); RED BLOOD COUNT 3.79 M/uL (4.2-5.4); WHITE BLOOD COUNT 9.05 K/uL (4.8-10.8)
[2016-08-19 07:03] LABS: BUN/CREATININE RATIO 6.5 (10-20); CALCIUM 7.4 mg/dl (8.5-10.1); CREATININE 0.66 mg/dl (0.60-1.20); MAGNESIUM 1.9 mg/dl (1.8-2.4); POTASSIUM 3.2 mmol/L (3.5-5.1)
[2016-08-19] MEDS: VANCOMYCIN HCL 250 MG/5 ML SOLN PO SCH ×2 (08:19→14:06)
[2016-08-19] MEDS: RASPBERRY SYRUP 5 ML UDP PO SCH ×2 (08:19→14:06)
[2016-08-19] MEDS: PANTOprazole SOD 40 MG TAB PO SCH (08:19)
[2016-08-19] MEDS: VENLAFAXINE HCL XR 150 MG CAPXR PO SCH (08:20)
[2016-08-19] MEDS: POTASSIUM CHLORIDE 20 MEQ TABCR PO SCH (08:20)
[2016-08-19 08:49] VITALS: BP 112/78; PULSE 92; TEMP 37.1; O2SAT 96
--- NOTE | 2016-08-19 14:02 | Progress Note ---
Medicine Progress Note Date & Time of Visit: Aug 19, 2016 at 14:02 . Subjective Feels much better. No fever. No nausea, vomiting, abdominal pain. Diarrhea improving. . Objective Last 8 Hrs Date Time Temp Pulse Resp B/P Pulse Ox O2 Delivery O2 Flow Rate FiO2 08/19/16 08:49 37.1 92 18 112/78 96 Room Air 08/19/16 08:10 Room Air Physical Exam: General- no distress Lungs- clear Heart- RRR Abdomen- + bowel sounds, soft, nontender Extremities- no pretibial edema or calf tenderness Neuro- alert . Laboratory Results: Last 24 Hours Test 08/19/16 06:10 White Blood Count 9.05 K/uL Red Blood Count 3.79 M/uL Hemoglobin 12.0 g/dL Hematocrit 36.1 % Mean Corpuscular Volume 95.3 fL Mean Corpuscular Hemoglobin 31.7 pg Mean Corpuscular Hemoglobin Concent 33.2 g/dl RDW Standard Deviation 47.0 fL RDW Coefficient of Variation 13.4 % Platelet Count 222 K/uL Mean Platelet Volume 10.4 fL Sodium Level 144 mmol/L Potassium Level 3.2 mmol/L Chloride Level 109 mmol/L Carbon Dioxide Level 27 mmol/L Anion Gap 8.0 mmol/L Blood Urea Nitrogen 4 mg/dl Creatinine 0.66 mg/dl Est Creatinine Clear Calc Drug Dose 106.7 ml/min Estimated GFR () 112.9 Estimated GFR (Non- 97.4 BUN/Creatinine Ratio 6.5 Random Glucose 98 mg/dl Calcium Level 7.4 mg/dl Magnesium Level 1.9 mg/dl Assessment & Plan SEPSIS Met criteria for sepsis per 2001 definition and current CMS guidelines- fever, tachycardia, leukocytosis. Systolic BP > 90. Lactate < 2. Blood cultures obtained. Stool + for C diff. Broad spectrum antibiotics not indicated in light of C diff. C DIFF COLITIS (present on admission) Treated with PO vancomycin and IV metronidazole with improvement. WBC 24,480 --> 11,800 --> 9005.. Discharge on vancomycin 125 mg QID to complete 10 day course of therapy. Patient given info on C diff. TOOTH ABSCESS Has received 7 days of amoxicillin / clavulanic acid + drainage by her dentist. Symptoms resolved. Discontinued amoxicillin / clavulanic acid in light of C diff. HYPERTENSION BP's relatively low in ED due to C diff colitis / volume depletion. Holding lisinopril / HCTZ. Follow. HYPOKALEMIA K = 3.1 in ED. Hypokalemia secondary to diarrhea +/- HCTZ. Receiving IV repletion. K today = 3.2 Discharge on KCl 20 mEq BID x 5 days. Recheck K in clinic. HYPOMAGNESEMIA Mg = 1.4 in ED. Secondary to diarrhea +/- HCTZ. Receiving IV repletion. Mg today = 1.9 Follow. GERD Continue PPI. VTE PROPHYLAXIS No anticoagulants in light of colitis. SCD's. Ambulate as able. DISPOSITION Discharge to home. Family Medicine follow-up with Dr. Hough. Components of this document were electronically copied and updated from the last documentation created by the undersigned in order to maintain a complete, accurate, and current record. Any portion of this document created by another author, if any, will be attributed to them. I certify that the record accurately reflects the patient's current status and services provided on the date of service. . Current Inpatient Medications: Current Inpatient Medications Medications (Trade) Dose Ordered Sig/Marc Route Start Time Stop Time Status Last Admin Dose Admin Ondansetron HCl (Zofran Inj) 4 mg Q6H PRN IV 08/16/16 18:15 09/15/16 18:14 08/17/16 13:47 4 MG Lorazepam (Ativan Tab) 0.5 mg TID PRN PO 08/16/16 20:15 09/15/16 20:14 Venlafaxine HCl (effeXOR EXTENDED REL CAP) 150 mg DAILY PO 08/17/16 09:00 09/16/16 08:59 08/19/16 08:20 150 MG Pantoprazole Sodium (Protonix Tab) 40 mg QAM PO 08/17/16 09:00 09/16/16 08:59 08/19/16 08:19 40 MG Acetaminophen (Tylenol Tab) 1,000 mg Q8H PRN PO 08/16/16 20:15 09/15/16 20:14 08/18/16 06:48 1,000 MG Vancomycin HCl 250 mg 250 mg QID PO 08/17/16 09:00 08/27/16 08:59 08/19/16 08:19 250 MG Metronidazole/Prmx (Flagyl / Nss/ Premixed Nss) 100 ml @ 100 mls/hr Q8@0200,1000,1800 IV 08/17/16 02:00 08/27/16 01:59 08/19/16 09:47 100 MLS/HR Raspberry (Raspberry Syrup 5ML Cup) 5 ml QID PO 08/17/16 09:00 08/27/16 08:59 08/19/16 08:19 5 ML Potassium Chloride (Klor-Con Tab) 20 meq BID PO 08/18/16 21:00 09/17/16 20:59 08/19/16 08:20 20 MEQ
[2016-08-19] MEDS ORDERED: MCRK20 PO (14:08)
[2016-08-19] MEDS ORDERED: VANC5CAP PO (14:08)
--- NOTE | 2016-08-19 14:17 | Discharge Instructions ---
Discharge Instructions Admission Reason for Admission: diarrhea . Discharge Discharge Diagnosis / Problem: diarrhea due to Clostridium difficile ("C. diff ") Discharge Goals Goal(s): Improve disease control Activity Recommendations Activity Limitations: resume your previous activity . Instructions / Follow-Up Instructions / Follow-Up FAMILY MEDICINE APPOINTMENT 08/21/2016 10:50 AM Eugenia Mariscal DO (covering for Dr. Hough) [facility] Clostridium difficile ("C diff") is a type of bacteria that can cause diarrhea. Take vancomycin 125 mg 4 times a day until gone. C diff can come back. Get rechecked if you have recurrent diarrhea after treatment. Clean your bathroom thoroughly with cleanser that contains chlorine to kill bacteria and bacterial spores. Your potassium level was low. Take potassium pills twice a day for 5 days. Have potassium level rechecked in clinic. Your blood pressure was relatively low. Hold your blood pressure medicine (lisinopril / HCTZ) until blood pressure rechecked in clinic. Seek medical attention if you have: * temperature above 101 * abdominal pain, nausea, vomiting * diarrhea, dark stools or bloody stools * any unanswered questions or concerns Call 911 if symptoms are severe. Call if you have any questions or problems. My cell # is [phone]. You can also reach a [facility] hospitalist on duty at [facility] 24 hours a day by calling [phone]. Please take good care of yourself. Tien Ramsay . Current Hospital Diet Patient's current hospital diet: Regular Diet, Low Lactose Diet Discharge Diet Recommended Diet: Regular Diet Pending Studies Studies pending at discharge: no Work Instructions Return To Work: after follow-up Additional Instructions: Fiorella Hedrick was absent from work starting 08/16 due to illness. Return to work date to be determined after recheck in clinic. Medical Emergencies . Who to Call and When: Medical Emergencies: If at any time you feel your situation is an emergency, please call 911 immediately. . Non-Emergent Contact Non-Emergency issues call your: Primary Care Provider . . "Provider Documentation" section prepared by Tien Ramsay. VTE Core Measure Inpt VTE Proph given/why not?: SCD's
[2016-08-19 14:21] VITALS: BP 112/78; PULSE 92; TEMP 37.1; O2SAT 96
--- NOTE | 2016-08-22 11:44 | Discharge Summary ---
Discharge Summary Admission Date: Aug 16, 2016 at 18:10 Discharge Date: Aug 19, 2016 Discharge Disposition: Home Principal Diagnosis: sepsis secondary to C diff colitis (present on admission) dehydration hypokalemia . Secondary Diagnoses/Problems: Medical Problems: (1) GERD (gastroesophageal reflux disease) Status: Chronic (2) Hypertension Status: Chronic . Procedures: IV fluids IV meds . Pending Studies/Follow-Up: Please check f/u BMP in clinic. . Medication Reconciliation New Medications: Potassium Chloride (Klor-Con M20) 20 Meq Tabcr 20 MEQ PO BID, #10 TAB Vancomycin Hcl (Vancomycin) 125 Mg Cap 125 MG PO QID, #32 CAP Continued Medications: Ascorbic Acid (Vitamin C) 1,000 Mg Tab 1000 MG PO DAILY Aspirin (Aspirin Ec) 81 Mg Tab 81 MG PO DAILY Calcium/Vitamin D (Caltrate 600 Plus *) Tab 1 TAB PO DAILY Cholecalciferol (Vitamin D3) 1,000 Unit Tab 1 TAB PO DAILY for 90 Days, #90 TAB 3 Refills Hctz/Lisinopril (Lisinopril/Hctz 10/12.5 Mg) 1 Ea Tab 1 TAB PO DAILY, TAB Hold until rechecked in clinic. Lorazepam (Ativan) 0.5 Mg Tab 0.5 MG PO TID PRN for Anxiety/Agitation, TAB Omeprazole (Prilosec) 40 Mg Capcr 40 MG PO Q2D Tocopheryl Acet,Dl-Alpha (Vitamin E) 400 Inter.unit Cap 400 INTER.UNIT PO DAILY, CAP Venlafaxine Hcl (Venlafaxine Hcl Er) 150 Mg Tab 150 MG PO DAILY, TAB Admission Information HPI (per Admitting provider): 56 YO female followed by Dr. Hough. History of hypertension and GERD. Prescribed amoxicillin / clavulanic acid for tooth abscess 1 week ago. Developed fever, malaise, diarrhea last night. No associated abdominal pain. Experienced some nausea, but no emesis. Passed about 8 loose stools during the night. No melena or hematochezia. She did not try any over the counter medications for her symptoms. . Physical Exam (per Admitting): General Appearance: WD/WN, + moderate distress Head: normocephalic, atraumatic Eyes: normal inspection, PERRL, EOMI, sclerae normal, + pertinent finding ( conjunctivae normal) ENT: normal ENT inspection, hearing grossly normal, pharynx normal Neck: supple, no adenopathy, thyroid normal, no JVD, trachea midline Respiratory/Chest: lungs clear, no respiratory distress, no accessory muscle use Cardiovascular: regular rate, rhythm, no edema, no gallop, no JVD, no murmur Abdomen/GI: non tender, soft, no organomegaly, no pulsatile mass, + pertinent finding (quiet bowel sounds) Extremities/Musculoskelatal: normal inspection, no calf tenderness, no pedal edema Neurologic/Psych: environmental safety specialist II-XII nml as tested (PERRL, EOMI, no facial palsy), no motor/sensory deficits (motor grossly intact), alert, normal mood/affect, oriented x 3 Skin: normal color, warm/dry, no rash Hospital Course SEPSIS Met criteria for sepsis per 2001 definition and current CMS guidelines- fever, tachycardia, leukocytosis. Systolic BP > 90. Lactate < 2. Blood cultures obtained. Stool + for C diff. Broad spectrum antibiotics not indicated in light of C diff. C DIFF COLITIS (present on admission) Treated with PO vancomycin and IV metronidazole with improvement. WBC 24,480 --> 11,800 --> 9005.. Discharge on vancomycin 125 mg QID to complete 10 day course of therapy. Patient given info on C diff. TOOTH ABSCESS Has received 7 days of amoxicillin / clavulanic acid + drainage by her dentist. Symptoms resolved. Discontinued amoxicillin / clavulanic acid in light of C diff. HYPERTENSION BP's relatively low in ED due to C diff colitis / volume depletion. Held lisinopril / HCTZ due to hypotension and hypokalemia. Will continue to hold until rechecked in clinic. HYPOKALEMIA K = 3.1 in ED. Hypokalemia secondary to diarrhea +/- HCTZ. Receiving IV repletion. K today = 3.2 Discharge on KCl 20 mEq BID x 5 days. Recheck K in clinic. HYPOMAGNESEMIA Mg = 1.4 in ED. Secondary to diarrhea +/- HCTZ. Receiving IV repletion. Mg today = 1.9 Follow. GERD Continue PPI. VTE PROPHYLAXIS No anticoagulants in light of colitis. SCD's. Ambulate as able. DISPOSITION Discharge to home. Family Medicine follow-up with Dr. Hough. Components of this document were electronically copied and updated from the last documentation created by the undersigned in order to maintain a complete, accurate, and current record. Any portion of this document created by another author, if any, will be attributed to them. I certify that the record accurately reflects the patient's current status and services provided on the date of service. . Total time spent on discharge = 40 min. This includes examination of the patient, discharge planning, medication reconciliation, and communication with other providers. . Discharge Instructions Admission Reason for Admission: diarrhea . Discharge Discharge Diagnosis / Problem: diarrhea due to Clostridium difficile ("C. diff ") Discharge Goals Goal(s): Improve disease control Activity Recommendations Activity Limitations: resume your previous activity . Instructions / Follow-Up Instructions / Follow-Up FAMILY MEDICINE APPOINTMENT 08/21/2016 10:50 AM Eugenia Mariscal DO (covering for Dr. Hough) [facility] Clostridium difficile ("C diff") is a type of bacteria that can cause diarrhea. Take vancomycin 125 mg 4 times a day until gone. C diff can come back. Get rechecked if you have recurrent diarrhea after treatment. Clean your bathroom thoroughly with cleanser that contains chlorine to kill bacteria and bacterial spores. Your potassium level was low. Take potassium pills twice a day for 5 days. Have potassium level rechecked in clinic. Your blood pressure was relatively low. Hold your blood pressure medicine (lisinopril / HCTZ) until blood pressure rechecked in clinic. Seek medical attention if you have: * temperature above 101 * abdominal pain, nausea, vomiting * diarrhea, dark stools or bloody stools * any unanswered questions or concerns Call 911 if symptoms are severe. Call if you have any questions or problems. My cell # is [phone]. You can also reach a [facility] hospitalist on duty at [facility] 24 hours a day by calling [phone]. Please take good care of yourself. Tien Ramsay . Current Hospital Diet Patient's current hospital diet: Regular Diet, Low Lactose Diet Discharge Diet Recommended Diet: Regular Diet Pending Studies Studies pending at discharge: no Work Instructions Return To Work: after follow-up Additional Instructions: Fiorella Hedrick was absent from work starting 08/16 due to illness. Return to work date to be determined after recheck in clinic. Medical Emergencies . Who to Call and When: Medical Emergencies: If at any time you feel your situation is an emergency, please call 911 immediately. . Non-Emergent Contact Non-Emergency issues call your: Primary Care Provider . . "Provider Documentation" section prepared by Tien Ramsay. VTE Core Measure Inpt VTE Proph given/why not?: SCD's . Additional Copies To Hayder Hough M.D.
== END 2016-08-19 15:06 | disposition home or self-care (01) | DRG 872 ==
LOC: ENRESERVTM → ENRESERVDT → C.EDB 12:57 → UNDOADMIN 18:10 → C.MS2W 18:10
PROVIDERS: ADMIT Hospitalist; ATTEND Hospitalist
DX: A41.9 Sepsis, unspecified organism (principal); A04.7 Enterocolitis due to Clostridium difficile; I10 Essential (primary) hypertension; E87.6 Hypokalemia; E86.0 Dehydration; E83.42 Hypomagnesemia; K21.9 Gastro-esophageal reflux disease without esophagitis; E86.1 Hypovolemia; I95.9 Hypotension, unspecified; K04.7 Periapical abscess without sinus; Z79.82 Long term (current) use of aspirin; Z79.899 Other long term (current) drug therapy

== ENCOUNTER → 2017-04-01 | Outpatient (CLI) | payer BC ==
[~2017-04-01] MED LIST changes: -DYZ PO; +LSN/10125 PO; +MCRK20 PO; +VENL150T33 PO
--- NOTE | 2017-04-02 07:57 | MAMMOGRAPHY REPORT ---
BILATERAL DIGITAL SCREENING MAMMOGRAM TOMOSYNTHESIS WITH CAD: 04/01/2017 CLINICAL HISTORY: Routine screening. Patient has no complaints. TECHNIQUE: Breast tomosynthesis in addition to standard 2D mammography was performed. Current study was also evaluated with a Computer Aided Detection (CAD) system. COMPARISON: Comparison is made to exams dated: 02/15/2015 mammogram, 03/28/2016 mammogram, 02/14/2014 ma mmogram, 02/11/2013 mammogram, 02/11/2012 mammogram, and 02/08/2011 mammogram - [facility]. BREAST COMPOSITION: The tissue of both breasts is almost entirely fatty. FINDINGS: There is a 3.6 mm mass in the upper outer anterior left breast, for which additional targe jennifer ultrasound and possible additional mammographic views are recommended. There are scattered benign-appearing punctate microcalcifications in the breasts. No other suspiciou s mass, architectural distortion or cluster of microcalcifications is seen. IMPRESSION: ACR BI-RADS CATEGORY 0: INCOMPLETE EVALUATION: NEED ADDITIONAL IMAGING EVALUATION The 3.6 mm mass in the upper outer anterior left breast needs additional evaluation. The patient will be called to schedule an appointment. Approximately 10% of breast cancers are not detected with mammography. A negative mammographic report should not delay biopsy if a clinically suggestive mass is present. Jade Retana M.D. ay/:04/01/2017 16:52:49 Special Police: Ayleen VILLALOBOS)(Matilde), [facility] letter sent: Addl Imaging 0 BI-RADS Code: ACR BI-RADS Category 0: Incomplete Evaluation: Need Additional Imaging Evaluation
== END | disposition home or self-care (01) ==
LOC: C.MAMM 15:55
PROVIDERS: ATTEND Physician Assistant
DX: Z12.31 Encounter for screening mammogram for malignant neoplasm of breast (principal); N63 Unspecified lump in breast

== ENCOUNTER → 2017-04-11 | Outpatient (CLI) | payer BC ==
--- NOTE | 2017-04-11 13:36 | MAMMOGRAPHY REPORT ---
ULTRASOUND OF LEFT BREAST: 04/11/2017 CLINICAL HISTORY: Callback from screening mammogram for left breast mass. COMPARISON: Comparison is made to exams dated: 04/01/2017 mammogram, 03/28/2016 mammogram, 02/15/2015 ma mmogram, 02/14/2014 mammogram, 02/11/2013 mammogram, and 02/11/2012 mammogram - [facility] nter. TECHNIQUE: Real-time targeted ultrasound of the left breast was performed. FINDINGS: Real-time, high resolution targeted ultrasound was performed of the left upper outer quadr ant in the region of the circumscribed 4 mm mammographic mass seen on the recent screening mammogram. In the left breast at 2:00 periareolar region, there is a circumscribed anechoic mass which measure s 3 x 3 x 4 mm. This corresponds with the circumscribed mammographic mass and is consistent with a b enign cyst. No suspicious solid masses were evident. IMPRESSION: ACR BI-RADS CATEGORY 2: BENIGN The mammographic mass corresponds with a benign 4 mm simple cyst in the left breast at 2:00 on ultras ound. There is no sonographic evidence of malignancy. A 1 year screening mammogram is recommended. The patient was verbally notified of the results. Breanna Alvarez M.D. ah/:04/11/2017 08:06:51 [employer] Developer: Mimi VILLALOBOS)(M), [facility] letter sent: Normal 1/2 BI-RADS Code: ACR BI-RADS Category 2: Benign
== END | disposition home or self-care (01) ==
LOC: C.MAMM 07:45
PROVIDERS: ATTEND Physician Assistant
DX: N60.02 Solitary cyst of left breast (principal)